=== PATIENT | female | born 1980 | race Caucasian/White ===

== ENCOUNTER → 2022-06-07 | Outpatient (CLI) | payer OTHER ==
[2022-06-07 18:09] LABS: HEMOGLOBIN 12.6 gm/dl (12.3-15.3); RED BLOOD COUNT 3.99 M/UL (4.00-5.10); WHITE BLOOD COUNT 11.1 K/UL (4.5-11.0)
[2022-06-07 18:32] LABS: BUN/CREATININE RATIO 10 (0-10)
== END ==
LOC: GENOP 16:36
PROVIDERS: Obstetrics & Gynecology
DX: O14.13 Severe pre-eclampsia, third trimester (principal); Z3A.32 32 weeks gestation of pregnancy; E66.01 Morbid (severe) obesity due to excess calories; Z98.890 Other specified postprocedural states
CPT/HCPCS: 80053; 85025; 96360; 96368; 96372; J0610; J0702; J3475

== ENCOUNTER → 2022-08-09 | Outpatient (CLI) | payer OTHER ==
[2022-08-09 09:44] LABS: HEMOGLOBIN 14.7 gm/dl (12.3-15.3); RED BLOOD COUNT 4.67 M/UL (4.00-5.10); WHITE BLOOD COUNT 9.1 K/UL (4.5-11.0)
== END ==
LOC: OPSV2 08:00
PROVIDERS: Obstetrics & Gynecology
DX: Z01.812 Encounter for preprocedural laboratory examination (principal); L02.92 Furuncle, unspecified; L02.214 Cutaneous abscess of groin
CPT/HCPCS: 81001; 85025

== ENCOUNTER → 2022-08-17 | Day surgery (SDC) | payer OTHER | END | disposition home or self-care (01) | LOC: OR 05:17 | DX: L73.9 Follicular disorder, unspecified (principal); E28.2 Polycystic ovarian syndrome; E66.01 Morbid (severe) obesity due to excess calories; Z68.41 Body mass index [BMI] 40.0-44.9, adult | CPT/HCPCS: 84703; J0690; J1100; J2001; J2250; J2405; J2704; J2795; J3010 ==